=== PATIENT | female | born 1995 | race Caucasian/White ===

== ENCOUNTER 2020-01-17 18:49 | Emergency (ER) | payer OTHER ==
[2020-01-17] MEDS ORDERED: Azithromycin 250 MG TAB ONE (19:27)
== END 2020-01-17 19:35 | disposition home or self-care (01) ==
LOC: MADERS 18:49
DX: O99.712 Diseases of the skin and subcutaneous tissue complicating pregnancy, second trimester (principal); L03.012 Cellulitis of left finger
CPT/HCPCS: 99283

== ENCOUNTER 2020-04-05 14:48 | Emergency (ER) | payer OTHER ==
[2020-04-06 06:36] LABS: SARS-CoV-2 MS2 Positive; SARS-CoV-2 N Gene Negative; SARS-CoV-2 S Gene Negative; SARS-CoV-2 by NAA Not Detected (NotDetected); SARS-CoV-2 orf1ab Negative
== END 2020-04-05 15:30 | disposition home or self-care (01) ==
LOC: MADERS 14:48
DX: Z20.828 Contact with and (suspected) exposure to other viral communicable diseases (principal); Z3A.30 30 weeks gestation of pregnancy
CPT/HCPCS: 87635; 99283; U0003

== ENCOUNTER 2020-06-18 18:18 | Emergency (ER) | payer BC, OTHER ==
[2020-06-18] MEDS ORDERED: Sodium Chloride 0.9% 1,000 ML ONE ×2 (19:41→21:02)
[2020-06-18] MEDS ORDERED: Ibuprofen 400 MG TAB ONE (19:41)
--- NOTE | 2020-06-18 19:54 | RAD ---
EXAM: Chest PA and lateral: HISTORY: Fever. COMPARISON: None FINDINGS: Heart: Normal cardiac silhouette Aorta: Unremarkable Pulmonary vessels: Normal Costophrenic angles: Costophrenic angles are clear. Lungs: No consolidation or masses. Pneumothorax: No pneumothorax Osseous structures: No osseous abnormalities IMPRESSION: No acute cardiopulmonary process.
[2020-06-18 20:05] LABS: Bilirubin Negative (Negative); Blood, Urine Trace (Negative); Clarity Slightly Cloudy (Clear); Glucose, Urine (Dipstick) Negative (Negative); Ketone, Urine > or equal to 80 mg/dL (Negative); Leukocyte Small (Negative); Nitrite Negative (Negative); Protein, Urine (Dipstick) 30 mg/dL (Neg-Trace); Specific Gravity, Urine 1.025 (1.005-1.030); Urobilinogen 0.2 mg/dL (Less than 2); pH, Urine 6.5 (5.0-9.0)
[2020-06-18 20:12] LABS: Bacteria/HPF Rare-Few HPF (None Seen); RBC/HPF 0-3 HPF (0-3)
[2020-06-18 20:20] LABS: #Lymphocytes 0.8 thou/uL (1.20-3.40); #Monocytes 0.3 thou/uL (0.11-0.59); #Neutrophils 8.3 thou/uL (1.40-6.50); %Basophils 0.4 % (0.0-1.0); %Monocytes 3.2 % (0.0-10.0); %Neutrophils 88.5 % (42.0-75.0); Hemoglobin 14.6 g/dL (12.0-16.0); Mean Corpuscular HGB CONC 32.4 g/dL (32.0-36.0); Mean Corpuscular Hemoglobin 28.9 pg (27.0-31.0); Platelet Count 169 thou/uL (130-400); RBC Distribution Width 13.2 % (11.5-14.5); Red Blood Cell (RBC) Count 5.05 mill/uL (4.20-5.40); White Blood Cell (WBC) Count 9.4 thou/uL (4.8-10.8)
[2020-06-18] MEDS ORDERED: cefTRIAXone\\ROCEPHIN 1 GM VIAL ONE (20:26)
[2020-06-18] MEDS ORDERED: Sodium Chloride 0.9% 100 ML ONE (20:26)
[2020-06-18 20:37] LABS: ALT (SGPT) 12 U/L (8-55); AST (SGOT) 16 U/L (5-34); Albumin 4.1 g/dL (3.5-5.0); Alkaline Phosphatase 126 U/L (40-110); Anion Gap 21 mmol/L (10-20); BUN (Urea Nitrogen) 7 mg/dL (7.0-18.7); Bilirubin, Total 0.6 mg/dL (0.2-1.2); Calc. Creatinine Clearance 0 mL/min (70-130); Calcium 8.6 mg/dL (7.8-10.44); Carbon Dioxide 17 mmol/L (22-29); Chloride 101 mmol/L (98-107); Globulin 3.2 g/dL (2.4-3.5); Glucose 90 mg/dL (70-105); Potassium 3.3 mmol/L (3.5-5.1); Protein, Total 7.3 g/dL (6.0-8.3); Sodium 136 mmol/L (136-145)
[2020-06-18] MEDS ORDERED: Potassium Chloride 20 MEQ TAB ONE (21:03)
[2020-06-20 01:38] LABS: SARS-CoV-2 PCR by NAA Not Detected (NotDetected)
== END 2020-06-18 21:39 | disposition home or self-care (01) ==
LOC: MADERS 18:18
DX: O86.22 Infection of bladder following delivery (principal); O99.285 Endocrine, nutritional and metabolic diseases complicating the puerperium; E86.0 Dehydration; E87.6 Hypokalemia; Z20.822 Contact with and (suspected) exposure to COVID-19
CPT/HCPCS: 71046; 80053; 81003; 81015; 83605; 85025; 87040; 87635; 87804; 96365; J0696; J3490; J7050; U0003; U0005

== ENCOUNTER 2021-08-26 21:18 | Emergency (ER) | payer BC, OTHER ==
[2021-08-26] MEDS ORDERED: predniSONE 20 MG TAB ONE (21:50)
== END 2021-08-26 21:57 | disposition home or self-care (01) ==
LOC: MADERS 21:18
DX: J30.9 Allergic rhinitis, unspecified (principal); J20.9 Acute bronchitis, unspecified; Z79.899 Other long term (current) drug therapy
CPT/HCPCS: 99283; J7512

== ENCOUNTER 2023-02-15 19:04 | Emergency (ER) | payer BC, OTHER, SELFPAY ==
[2023-02-15] MEDS ORDERED: Lidocaine 1% PF 5 ML VIAL ONE (19:19)
== END 2023-02-15 19:08 | disposition home or self-care (01) ==
LOC: MADERS 19:04
DX: S61.412A Laceration without foreign body of left hand, initial encounter (principal); W26.0XXA Contact with knife, initial encounter
CPT/HCPCS: 12001

== ENCOUNTER 2023-04-01 22:09 | Emergency (ER) | payer MEDICAID, SELFPAY | END 2023-04-01 22:38 | disposition short-term general hospital (02) | LOC: MADERS 22:09 | DX: O26.891 Other specified pregnancy related conditions, first trimester (principal); N89.8 Other specified noninflammatory disorders of vagina; Z3A.11 11 weeks gestation of pregnancy | CPT/HCPCS: 99284 ==